=== PATIENT | male | born 1965 | race Caucasian/White ===

== ENCOUNTER 2020-02-29 11:53 | Emergency (ER) | payer MEDICAID ==
[~2020-02-29] VITALS: Ht 175.3 cm; Wt 114.0 kg
[2020-02-29 11:55] VITALS: BP 164/90
--- NOTE | 2020-02-29 12:31 | NUR ---
seen by provider for dental pain. prescription given with discharge and pt ambulated to discharge window steady gait
== END 2020-02-29 12:42 | disposition home or self-care (01) ==
LOC: ED 12:30
DX: K04.7 Periapical abscess without sinus (principal); K02.9 Dental caries, unspecified; F17.290 Nicotine dependence, other tobacco product, uncomplicated
CPT/HCPCS: 99283